=== PATIENT | male | born 1995 | race Caucasian/White ===

== ENCOUNTER 2024-10-29 09:34 | Emergency (ER) | payer OTHER, SELFPAY ==
--- NOTE | ~2024-10-29 | XR_ITS ---
XR ankle LT min 3V 10/29/2024 10:08 INDICATION: Left ankle pain after injury PROCEDURE: 4 views left ankle COMPARISON: No prior studies for comparison. FINDINGS: Fracture, dislocation or subluxation is not identified. The soft tissues appear within norm al limits. No foreign bodies are identified. IMPRESSION: 1: NO ACUTE BONE OR JOINT ABNORMALITY IDENTIFIED. Reviewed, dictated and finalized at location A.
[2024-10-29 09:38] VITALS: BP 153/83; PULSE 52; RESP 16; TEMP 36.4; O2SAT 100
--- OUTSIDE RECORDS SUMMARY | 2024-10-29 09:52 | XMS_ITS | Encounter Summary ---
Author Organization [facility] Address [address] [place] [address] Care Team Providers Care Front End Web Developer Name Role Phone Unavailable Primary Care Provider Unavailabl e Prior Encounters Date Type Department Care Team Description 06/17/2019 Converted 13x Documents [facility] [address] [place] [phone] <No scans attached> Plan of Treatment Not on file Procedures Procedure Name Priority Date/Time Associated Diagnosis Comments MISSED APPOINTMENT Routine 01/31/2020 2:00 AM CDT MISSED APPOINTMENT Routine 08/09/2019 2:00 AM CDT Visit Diagnoses Not on file
--- OUTSIDE RECORDS SUMMARY | 2024-10-29 09:52 | XMS_ITS | Clinical Summary ---
Author Organization [facility] [address] [place] [address] Care Team Providers Care Wire Strander Name Role Phone Unavailable Primary Care Provider Unavailabl e Social History Tobacco Use Types Packs/Day Years Used Date Smoking Tobacco: Never Assessed Sex and Gender Information Value Date Recorded Sex Assigned at Not on file Legal Sex Male 9:21 PM PDT Gender Identity Not on file Sexual Orientation Not on file Plan of Treatment Not on file
[2024-10-29 10:21] VITALS: BP 132/75; PULSE 57; RESP 18; TEMP 37.1; O2SAT 98
--- OUTSIDE RECORDS SUMMARY | 2024-10-29 11:02 | XMS_ITS | Encounter Summary ---
Author Organization [facility] Address [address] [place] [address] Care Team Providers Care Sound Engineer Audio Control Name Role Phone Unavailable Primary Care Provider Unavailabl e Prior Encounters Date Type Department Care Team Description 06/17/2019 Converted 13x Documents [facility] [address] [place] [phone] <No scans attached> Plan of Treatment Not on file Procedures Procedure Name Priority Date/Time Associated Diagnosis Comments MISSED APPOINTMENT Routine 01/31/2020 2:00 AM CDT MISSED APPOINTMENT Routine 08/09/2019 2:00 AM CDT Visit Diagnoses Not on file
--- OUTSIDE RECORDS SUMMARY | 2024-10-29 11:02 | XMS_ITS | Clinical Summary ---
Author Organization [facility] [place] Address [address] [place] [address] Care Team Providers Care Specialty Sales Representative Name Role Phone Unavailable Primary Care Provider [...]
--- NOTE | 2024-10-29 11:03 | ED_ITS ---
HPI - Extremity Injury (Lower) General Chief Complaint: Extremity Injury, Lower Stated Complaint: L ANKLE PAIN Time Seen by Provider: 10/29/24 10:22 History of Present Illness HPI Narrative: Few weeks ago patient twisted his ankle, has been getting slightly better however a few days ago he started having pain to his left ankle again. Related Data Allergies Allergy/AdvReac Type Severity Reaction Status Date / Time No Known Allergies Allergy Verified 10/29/24 09:35 Review of Systems Review of Systems: All systems reviewed & are unremarkable except as noted in HPI and below Exam Narrative: EXAMINATION OF ORGAN SYSTEMS/BODY AREAS: Constitutional: Vital signs per nursing GENERAL:[No acute distress, non-toxic appearing.] HEAD: Normal with no signs of head trauma. EYES: EOMI, conjunctiva normal ENT: Hearing grossly intact LUNGS: Nonlabored breathing. HEART: [Regular rate and rhythm], normal DP pulse ABD: [Soft], [nontender to palpation] EXT: Normal range of motion; no obvious deformity or significant tenderness. SKIN: [No rashes or lesions.] NEURO: [Alert and oriented x 3. No gross focal sensory or strength deficits.] PSYCH: Normal affect Course Vital Signs Vital signs: Vital Signs Temperature 97.6 F 10/29/24 09:38 Pulse Rate 52 L 10/29/24 09:38 Respiratory Rate 16 10/29/24 09:38 Blood Pressure 153/83 H 10/29/24 09:38 Pulse Oximetry 100 10/29/24 09:38 Oxygen Delivery Room Air 10/29/24 09:38 Temperature 98.7 F 10/29/24 10:21 Pulse Rate 57 L 10/29/24 10:21 Respiratory Rate 18 10/29/24 10:21 Blood Pressure 132/75 10/29/24 10:21 Pulse Oximetry 98 10/29/24 10:21 Oxygen Delivery Room Air 10/29/24 09:38 MDM - Extremity Injury (Lower) MDM Narrative Medical decision making narrative: MEDICAL DECISION MAKING AND COURSE IN THE ED WITH INTERPRETATION/REVIEW OF DIAGNOSTIC STUDIES: Patient presented to the ED with complaint of left ankle pain for last few weeks after prior injury. Vitals [were within acceptable limits]. Physical exam revealed no obvious tenderness or bony deformity, he is neurovascularly intact and normal range of motion Based on the patient's history and physical exam, I suspect a sprain. Ankle x-ray without acute fracture on my independent interpretation REESE wrap applied to injured extremity. Patient given strict return precautions if pain is worse or there is poor blood flow to the extremity, and advised to rest the limb and to followup with Podiatry as needed. Discharge Plan Discharge Clinical Impression: Ankle sprain and strain Patient Disposition: Home Condition: Stable Instructions: Ankle Sprain (ED) Additional Instructions: Please follow-up with land development project manager, you can always return to the emergency room for any further issues. Patient Language: [place] Follow-up/Referrals: Alvaro Gonzales Jr., AMARJIT [Physician] - 2 Days UNKNOWN,DOCTOR [Primary Care Provider] - Stand Alone Forms: Work/School Release IP
[2024-10-29 11:07] VITALS: BP 128/83; PULSE 64; RESP 18; TEMP 37.1; O2SAT 98
== END 2024-10-29 11:08 | disposition home or self-care (01) ==
LOC: ANHED 10:44
PROVIDERS: Emergency Provider Emergency Medicine
DX: S93.402A Sprain of unspecified ligament of left ankle, initial encounter (principal); X50.0XXA Overexertion from strenuous movement or load, initial encounter
CPT/HCPCS: 73610; 99283